=== PATIENT | female | born 1995 | race Two or more races ===

== ENCOUNTER → 2019-02-01 14:39 | Outpatient (CLI) | payer MEDICAID ==
[~2019-02-01 14:39] MED LIST: HYDROCODON-ACE1 EA10 PO; IBUPROFEN600 MG PO; PRENAVITE1 TAB PO
[2019-02-02 00:29] VITALS: BMI 29.9
== END | disposition home or self-care (01) ==
LOC: D.LDO 14:39
PROVIDERS: ATTEND Obstetrics & Gynecology
DX: O62.9 Abnormality of forces of labor, unspecified (principal); Z3A.39 39 weeks gestation of pregnancy

== ENCOUNTER 2019-02-01 20:24 | Inpatient (IN) | payer MEDICAID ==
[~2019-02-01] VITALS: Ht 152.4 cm; Wt 69.4 kg
[2019-02-01 22:10] LABS: HEMATOCRIT 34.1 % (36.0-48.0); HEMOGLOBIN 11.3 g/dL (12-16); MCHC 33.1 g/dL (31.0-37.0); MCV 84.6 fL (80.0-100.0); MEAN PLATELET VOLUME 9.9 fL (7.4-10.4); RBC 4.03 10x6/uL (4.00-5.40); RDW 14.7 % (11.5-14.5); WBC 10.1 10x3/uL (4.8-10.8)
[2019-02-01 22:28] LABS: UDS - AMPHET NEGATIVE QUAL (NEGATIVE); UDS - BARB NEGATIVE QUAL (NEGATIVE); UDS - BENZO NEGATIVE QUAL (NEGATIVE); UDS - COCAINE NEGATIVE QUAL (NEGATIVE); UDS - OPIATE NEGATIVE QUAL (NEGATIVE); UDS - PCP NEGATIVE QUAL (NEGATIVE); UDS - THC POSITIVE QUAL (NEGATIVE)
[2019-02-02] VITALS (9 sets, daily range): BP systolic 108–145; BP diastolic 66–83; Ht 152.4 cm; Wt 69.4 kg
--- NOTE | 2019-02-02 12:40 | NUR ---
RECEIVED FROM RECOVERY ROOM TO 1274. ALERT AND ORIENTED. IV NS WITH 20 U PITOCIN INFUSING RIGHT WRIST. SCALES DRAINING YELLOW, BLOOD TINGED URINE. LTCS ABD DRESSING INTACT WITH SMALL AREA OF BRIGHT RED BLOOD STAIN NOTED INNER LAYER OF DRESSING. MARKED WITH PEN. SIZE APPROX QUARTER SIZE. ICE PACK ON INCISIONAL DRESSING WHICH PT SAYS HELPS WITH PAIN. CURRENTLY 8/[address] AND PLACED ON PUMP, WORKING BILATERALLY. ABLE TO MOVE FEET BUT UNABLE TO MOVE LIFT OR BEND LE. 2/U FIRM, MIDLINE, RUBRA SMALL-CLEAN JAZLYN-PADS X 2 PLACED. SIDE RAILS UP X 2, CALL LIGHT IN REACH.
--- NOTE | 2019-02-02 13:00 | NUR ---
2/U FIRM MIDLINE, RUBRA SMALL, REMOVED JAZLYN-PAD WITH ONE CLEAN PAD REMAINING. VISITORS IN ROOM. SIDE RAILS UP X 2, CALL LIGHT IN REACH.
--- NOTE | 2019-02-02 13:03 | NUR ---
TORADOL 30 MG GIVEN IVP FOR RELIEF OF 8/10 INCISIONAL BURNING AFTER DISCUSSING PURPOSE OF MEDICATION WITH PATIENT. WILL SET-UP COMMUNITY ENGAGEMENT COORDINATOR FOR PATIENT USE PER MD ORDERS.
--- NOTE | 2019-02-02 13:15 | NUR ---
Ajay TOLLIVER, RN IN ROOM ASSISTING PT WITH . DILAUDID AUTOMATIC RIVETING MACHINE OPERATOR CONNECTED AND PT INSTRUCTED ON USE AND THAT SHE IS THE ONLY PERSON TO PUSH THE CONTROLLER. VERBALIZED UNDERSTANDING. INCISIONAL PAIN NOW 6/10 AFTER TORADOL. SCD'S IN PLACE AND WORKING BILATERALLY, ICE PACK ON INCISION. VISITORS IN ROOM. SIDE RAILS UP X 2, CALL LIGHT IN REACH. AUTOMATIC RIVETING MACHINE OPERATOR SETTINGS CONFIRMED BY Ajay TOLLIVER RN.
--- NOTE | 2019-02-02 13:15 | NUR ---
2/U FIRM MIDLINE, RUBRA SMALL, CLEAN JAZLYN-PAD X 1 PLACED. NO CHANGE IN BLEEDING NOTED ON ABDOMINAL DRESSING. SITTING UP IN BED. NO REQUESTS.
--- NOTE | 2019-02-02 13:30 | NUR ---
1/U FIRM MIDLINE, RUBRA SMALL. ICE PACK REMAINS ON INCISION. AND VISITORS IN ROOOM. SIDE RAILS UP X 2, CALL LIGHT IN REACH.
--- NOTE | 2019-02-02 13:51 | NUR ---
SITTING IN LOW FOWLERS POSITION, INSTRUCTED ON USE ON INCENTIVE SPIROMETER, PERFORMED THREE TIMES WITH WEAK COUGH. TAUGHT HOW TO SUPPORT ABDOMEN. IN CRIB, VISITORS X 3 IN ROOM. SAYS PAIN IS 5/10 WHICH SHE SAY IS TOLERABLE, ENCOURAGED USE OF ROLL UP MACHINE OPERATOR IF NEEDED. ABLE TO MOVE FEET BUT UNABLE TO LIFT LE OR BEND AT KNEES. APPLE JUICE, ICE WATER, SPRIT AND JELLO AT BEDSIDE. ENCOURAGE SMALL AMOUNTS AT FIRST. SIDE RAILS UP X 2, CALL LIGHT IN REACH.
--- NOTE | 2019-02-02 14:18 | NUR ---
PT CALLED SCHOOL PSYCHOLOGICAL EXAMINER LIGHT, TO ROOM TO ASSIST PT, STATES "I LEAKED". MOD BLEEDING NOTED ON JAZLYN-PAD X 1, TWO PADS IN PLACE, 1/U FIRM MIDLINE, NO CLOTS OR ACTIVE BLEEDING WITH GENTLE EXAM. ASSISTED TO MOVE UP IN BED, POSITIONED TO RIGHT SIDE. PREPARING TO BREASTFEED INFANT. Ajay TOLLIVER RN NURSERY IN ROOM TO ASSIST. BEGINNING TO BE ABLE TO BEND AT KNEES BILATERALLY. SIDE RAILS UP X 2, CALL LIGHT IN REACH. VISITORS IN ROOM.
--- NOTE | 2019-02-02 15:05 | NUR ---
1/U FIRM MIDLINE, ONE PAD SATURATED- PAD WEIGHED- EQUIVALENT TO 60 CC BLOOD LOSS. WILL MONITOR BLEEDING. SCALES DRAINING CLEAR YELLOW URINE. HAS NOT USED SUPERVISOR COLD ROLLING. SAYS SHE IS STILL 5/10 "I'M DOING FINE. DO I NEED TO USE IT?" EXPLAINED THAT IS UP TO HER BASED ON HER PAIN AND NEED FOR PAIN MANAGEMENT. VERBALIZED UNDERSTANDING. VISITORS IN ROOM, ATTEMPTED TO BREASTFEED EARLIER. Ajay TOLLIVER RN NURSERY CURRENTLY IN ROOM. SIDE RAILS REMAIN UP, CALL LIGHT AND SUPERVISOR COLD ROLLING CONTROLLER WITHIN REACH.
--- NOTE | 2019-02-02 16:09 | NUR ---
LAYING TILTED TO LEFT SIDE. 1/U FIRM MIDLINE. RUBRA SCANT ON PAD. INCENTIVE SPIROMETER USED X 3 WITH WEAK COUGH. FRESH ICE PACK TO INCISION. NO ADDITIONAL REQUESTS. VISITORS IN ROOM. INFANT IN ROOM, Ajay TOLLIVER, MARISA NURSERY CURRENTLY IN ROOM. SCALES DRAINING CLEAR YELLOW URINE, SCD'S FUNCTIONAL BILATERALLY. MOVING LE. REMINDED NOT TO PULL LEGS UP AND BEND KNEES FOR PROLONG PERIODS. SIDE RAILS UP X 2, CALL LIGHT AND SUPERVISOR CORE SHOP CONTROLLER IN REACH.
[2019-02-02 16:19] LABS: BASOPHILS 0.1 % (0-2); EOSINOPHILS 0 % (0-7); HEMATOCRIT 29.3 % (36.0-48.0); HEMOGLOBIN 9.4 g/dL (12-16); IMMATURE GRANULOCYTES 0.3 % (0-5); LYMPHOCYTES 10.2 % (15-50); MCH 27.5 pg (26.0-34.0); MCHC 32.1 g/dL (31.0-37.0); MCV 85.7 fL (80.0-100.0); MEAN PLATELET VOLUME 9.7 fL (7.4-10.4); MONOCYTES 7.3 % (2-11); NEUTROPHILS 82.1 % (40-80); PLATELET COUNT 220 10x3/uL (130-400); RBC 3.42 10x6/uL (4.00-5.40); RDW 14.9 % (11.5-14.5)
[2019-02-02 16:22] LABS: WBC 12.8 10x3/uL (4.8-10.8)
--- NOTE | 2019-02-02 16:25 | NUR ---
H&H RESULTS CALLED TO DR HERNANDES. ALSO GAVE RESULTS OF ADMIT H&H. NO NEW ORDERS.
--- NOTE | 2019-02-02 17:25 | NUR ---
VS OBTAINED, INCENTIVE SPIROMETER USED X 3. REPOSITIONED FROM LEFT SIDE TO RIGHT SIDE WITH PILLOWS. ICE PACK IN PLACE OVER INCISION, 1/U FIRM MIDLINE, RUBRA SCANT ON PAD. SCD'S IN PLACE AND FUNCTIONAL. USED FLATWORK FEEDER SAYS PAIN WAS 7/10 AND NOW 5/10. DESIRES TO TAKE A NAP. NURSERY RN JUST BROUGHT INFANT TO ROOM IN CRIB. VISITORS X 2 AT IN ROOM. SIDERAILS UP X 2, CALL LIGHT IN REACH, FLATWORK FEEDER CONTROLLER IN REACH.
--- NOTE | 2019-02-02 18:48 | NUR ---
AWAKE, SAYS SHE JUST WOKE UP FROM A 30 MINS NAP. SAYS HER INCISIONAL BURNING WAS A 7 WHEN SHE WOKE AND NOW AN 8. PUSHED HER SECURITY SYSTEMS SALES REPRESENTATIVE BUTTON. TORADOL 30 MG GIVEN IVP FOR ADDITIONAL RELIEF. ENCOURAGED TO REST AND CONTINUE TO PUSH SECURITY SYSTEMS SALES REPRESENTATIVE CONTROLLER NEEDED. UNABLE TO LIFT LEGS OFF BED. DISCUSSED CHANGES IN PAIN PERCEPTIONS EPIDURAL CONTINUES TO WEAR OFF. VERBALIZED UNDERSTANDING. INFANT IN CRIB COLOR PINK, RESPIRATIONS EVEN. SIDE RAILS UP X 2, CALL LIGHT IN REACH ALONG WITH SECURITY SYSTEMS SALES REPRESENTATIVE CONTROLLER. TO CALL IF ANYTHING IS NEEDED.
--- NOTE | 2019-02-02 19:08 | NUR ---
PT AAOX3, CONVERSANT AND RESPONSES APPROPRIATE, SKIN WARM AND DRY, COLOR WNL, PULSE OX 96% ON ROOM AIR, VSS, AFEBRILE, DENIES LI, BLURRY VISION, DIZZINESS, HEART RRR WITHOUT AUDBILE MURMUR PER AUSCULATION, LUNGS CTAB, ABD SOFT TENDER TO LIGHT PALPATION, FUNDUS FIRM AT U/2 AND MIDLINE, LOCHIA RUBRA MODERATE AMOUNT, PERICARE/SCALES CARE PROVIDED, SCALES CATHETER WITH CLEAR YELLOW URINE IN TUBING, TUBING REPOSITIONED WITH 200ML FLOW TO COLLECTION CHAMBER, RATES PAIN A 6/10 ON NUMERIC PAIN SCALE, USING DRYER OPERATOR BUTTON FOR PAIN RELIEF INTERMITTENTLY, RECEIVED TORADOL SIVP PRIOR THIS RN TAKING PT, STATES BEGINNING TO "HELP SOME NOW." CAMPBELL FREELY, SCDS IN PLACE B LE, NEGATIVE CANDE'S SIGN B LE, PEDAL PULSES STRONG AND EQUAL 2+ B, CAP REFILL LESS THAN 3 SEC ON EXTREMITIES. REVIEWED PLAN OF CARE THIS PM, CALL LIGHT/DRYER OPERATOR BUTTON WITHIN EASY REACH, TOLERATING CLEAR LIQUIDS WITHOUT NAUSEA OR VOMITING. CONTINUE TO MONITOR.
--- NOTE | 2019-02-02 20:30 | NUR ---
ROUNDS COMPLETED, RESP EVEN AND UNLABORED, SMILING ON ENTRY TO ROOM, MULTIPLE VISITORS AND FAMILY PRESENT, BELARUSIAN SPEAKING, PT BILINGUAL. DENIES NEEDS OR CONCERNS AT THIS TIME, CONTINUE TO MONITOR.
--- NOTE | 2019-02-02 21:42 | NUR ---
ROUNDS COMPLETED, FUNDUS FIRM AT U/2, MIDLINE, LOCHIA RUBRA LIGHT TO MODERATE AMOUNT, NO CLOTS VISUALIZED, LOW TRANSVERSE INCISION INTACT WITH OCCLUSIVE DRESSING WITH OLD DRAINAGE MARKINGS SHOWING NO NEW DRAINAGE SINCE SHIFT ASSESSMENT THIS PM. MULTIPLE FAMILY AND FRIENDS TO ROOM, NAD NOTED. RESP EVEN AND UNLABORED, ICE PACK OVERLAY REPLACED AND TO INCISIONAL SITE, CUP OF ICE PROVIDED UPON REQUEST. CONTINUE TO MONITOR.
--- NOTE | 2019-02-02 22:13 | NUR ---
ROUNDS COMPLETED, VSS, AFEBRILE, RESP EVEN AND UNLABORED, PERICARE/SCALES CARE COMPLETED, FUNDUS FIRM AT U/2 AND MIDLINE, LOCHIA RUBRA LIGHT AMOUNT, NO CLOTS NOTED, PT SELF POSITIONING IN BED, REPORTS PAIN A 4 OF 10 ON NUMERIC PAIN SCALE 0-10, STATES USING EDUCATIONAL SIGN LANGUAGE INTERPRETER BUTTON FOR EFFECTIVE MANAGEMENT OF PAIN.
--- NOTE | 2019-02-03 00:15 | NUR ---
ROUNDS COMPLETED, PT RESTING IN BED, HOB ELEVATED AT 30 DEGREES, RESP EVEN AND UNLABORED, RATES PAIN 4 OF 10 ON NUMERIC PAIN SCALE AT THIS TIME, CALL LIGHT/ACCOUNTS RECEIVABLE ACCOUNTANT BUTTON WITHIN EASY REACH, SIDE RAILS UP X2, BED IN LOW POSITION, SIGNIFICANT OTHER AT BS WITH PT. NO NEEDS VOICED AT THIS TIME.
--- NOTE | 2019-02-03 01:08 | NUR ---
C/O INCISIONAL PAIN RATED 7 OF 10 0N NUMERIC PAIN SCALE, INCREASED ON MOVEMENT IN BED, DESCRIBED ACUTE INCISIONAL PAIN AND SURROUNDING ACHINESS. KETORALAC 30MG SIVP GIVEN VIA PIV ORDERED PER MD. EMPTIED 1200ML CLEAR YELLOW URINE FROM SCALES CATHETER AND RESET TO GRAVITY DRAINAGE, SCALES/PERICARE PROVIDED, PERIPADS PLACED, FRESH ICE PACK OVERLAY TO INCISIONAL SITE PER PT REQUEST, CUP OF ICE PROVIDED WELL PER REQUEST. PIV SITE BENIGN TO INSPECTION, NO NEW BLEEDING NOTED TO INCISIONAL DRESSING TO LOW ABDOMEN. FUNDUS FIRM AT U/2 AND MIDLINE, LOCHIA RUBRA MODERATE AMOUNT NO CLOTS. CALL LIGHT AND RADIO INTERFERENCE SUPERVISOR BUTTON WITHIN EASY REACH. CONTINUE TO MONITOR.
--- NOTE | 2019-02-03 01:40 | NUR ---
PAIN REASSESSMENT COMPLETED, PT NOW RATES PAIN 4 OF 10 ON NUMERIC PAIN SCALE, INFANT IN ARMS, NAD NOTED. CONTINUE TO MONITOR.
--- NOTE | 2019-02-03 02:50 | NUR ---
ROUNDS COMPLETED, PT SITTING UPRIGHT IN BED, HOB AT 45 DEGREES, INFANT IN ARMS, REPORTS PASSING CLOT. PERICARE PROVIDED, CLOT ROUGHLY SIZE OF DECK OF CARDS PASSED, FUNDUS IS FIRM AT THIS TIME, U/2 AND MIDLINE, CAMPBELL FREELY, SCDS ON AND FUNCTIONING, CAP REFILL LESS THAN 3 SECS TO B LE, NEGATIVE CANDE'S SIGN. CONTINUE TO MONITOR.
[2019-02-03 03:43] VITALS: BP 113/59
--- NOTE | 2019-02-03 04:47 | NUR ---
1000ML BAG NS WITH 20 UNITS PITOCIN ADDED HUNG AND INFUSING AT 125ML/HR TO RIGHT WRIST. PT DROWSY, DENIES NEEDS OR CONCERNS AT THIS TIME, STATES SLEEPY AND WOULD LIKE FOR THIS NURSE TO TAKE TO NURSERY TO SLEEP; SAME DONE. CALL LIGHT HIGH SCALER BUTTON WITHIN EASY REACH, CONTINUE TO MONITOR.
[2019-02-03] MEDS ORDERED: PRENAVITE1 TAB PO (05:36)
--- NOTE | 2019-02-03 06:30 | NUR ---
MD TO SEE PT. ROUNDS COMPLETED, PT DENIES NEEDS/CONCERNS, DROWSY. CALL LIGHT IN EASY REACH, RESP EVEN AND UNLABORED. CONTINUE TO MONITOR.
--- NOTE | 2019-02-03 07:00 | NUR ---
DR HERNANDES HERE TO SEE PT.
--- NOTE | 2019-02-03 07:03 | NUR ---
REPORT GIVEN TO ONCOMING SHIFT STAFF.
[2019-02-03 07:52] VITALS: BP 128/69
[2019-02-03 07:55] LABS: BASOPHILS 0.2 % (0-2); EOSINOPHILS 0.4 % (0-7); HEMATOCRIT 29.8 % (36.0-48.0); HEMOGLOBIN 9.5 g/dL (12-16); IMMATURE GRANULOCYTES 0.3 % (0-5); LYMPHOCYTES 20.3 % (15-50); MCH 27.3 pg (26.0-34.0); MCHC 31.9 g/dL (31.0-37.0); MCV 85.6 fL (80.0-100.0); MEAN PLATELET VOLUME 9.9 fL (7.4-10.4); NEUTROPHILS 70.8 % (40-80); PLATELET COUNT 191 10x3/uL (130-400); RBC 3.48 10x6/uL (4.00-5.40); RDW 15.2 % (11.5-14.5); WBC 10.1 10x3/uL (4.8-10.8)
--- NOTE | 2019-02-03 08:05 | NUR ---
ASSESSMENT DONE. SITTING UP IN BED -REG DIET SERVED. NO REQUESTS.
--- NOTE | 2019-02-03 09:10 | NUR ---
AM HEMOGRAM REPORTED TO DR HERNANDES- NEW ORDERS RECEIVED.
--- NOTE | 2019-02-03 09:50 | NUR ---
SCALES CATH REMOVD POST BULB DEFLATED WITHOUT INCIDENT- 650CC URINE IN BAG. JAZLYN CARE DONE. SMALL TO MOD LOCHIA NOTED. NO CLOTS. IV CHANGED TO SALINE LOCK- FLUSHED WITH 10CCNS.
--- NOTE | 2019-02-03 10:50 | NUR ---
entered room- pt denies wanting pain medication. states she needs to go to bathroom but family in bathroom at this time. pt states will ring call light when ready.
--- NOTE | 2019-02-03 10:56 | NUR ---
rings call light- pt ambulates to bathroom. states that she would like pain medication now. voids 650cc into container. returns to bed. states that she has passed some gas last night but not today.
--- NOTE | 2019-02-03 11:09 | NUR ---
PAIN MEDS GIVEN.
--- NOTE | 2019-02-03 12:28 | NUR ---
SITTING UP IN BED TALKING WITH VISITORS. LUNCH SERVED. PT STATES WILL CALL WHEN READY TO SHOWER.
--- NOTE | 2019-02-03 12:55 | NUR ---
UP TO BATHROOM- VOIDED 700CC. INTO SHOWER AND TOLERATED WELL. LINENS CHANGED. RETURNED TO BED. STATES HAS PASSED A LITTLE GAS.
[2019-02-03 13:30] VITALS: BP 126/71
--- NOTE | 2019-02-03 15:20 | NUR ---
Luis EUCEDA RN IN ROOM- PT DENIES NEEDS.
--- NOTE | 2019-02-03 16:00 | NUR ---
AMBULATING IN HALLWAYS-GUERITA WELL.
[2019-02-03 16:24] VITALS: BP 155/68
--- NOTE | 2019-02-03 16:31 | NUR ---
REQUESTING PAIN MEDICATION- RATES PAIN A 6 ON SCALE OF 0-10. INCISIONAL PAIN.
--- NOTE | 2019-02-03 17:55 | NUR ---
AMBULATING IN HALLWAY. STATES THAT WOULD LIKE IBUPROFEN NOW. MED GIVEN.
[2019-02-03 19:15] VITALS: BP 126/61
--- NOTE | 2019-02-03 19:15 | NUR ---
SHIFT ASSESSMENT COMPLETED, PT AMBULATORY IN ROOM ON ARRIVAL, SMILING, CONVERSANT AAOX3, VSS, TEMP 99.5 ORALLY, DENIES LI/BLURRY VISION, DIZZINESS, LUNGS CTAB, HEART RRR WITHOUT MURMUR, ABD SOFT AND NONTENDER, REPORTS FLATUS, BOWEL SOUNDS PRESENT AND ACTIVE, LOW TRANSVERSE INCISION CDI WITH JOSIANE, NO REDNESS, WARMTH, DRAINAGE, OR EDEMA NOTED, PT USING ICE PACK OVERLAY PAIN MANAGEMENT MEASURE-REFILLED AND REPLACED PER PT REQUEST, FUNDUS FIRM AT U/3 AND MIDLINE, LOCHIA RUBRA LIGHT AMOUNT, SELF PERFORMS PERICARE, VOIDING WITHOUT DIFFICULTY, NO BM YET, CAMPBELL FREELY, NEGATIVE CANDE'S SIGN B LE, PEDAL PULSES STRONG/=+2 B. CALL LIGHT IN EASY REACH, RATES PAIN 3 OF 10 AT THIS TIME. CONTINUE TO MONITOR.
--- NOTE | 2019-02-03 20:54 | NUR ---
C/O PAIN RATED 5 OF 10, NORCO 10/325MG GIVEN WITH SIPS OF WATER. CUP OF ICE PROVIDED UPON REQUEST WELL. PT AMBULATORY IN ROOM, REPORTS VOIDING X1 SINCE SHIFT ASSESSMENT TONIGHT. FAMILY AND FRIENDS VISITING IN PT ROOM. CALL LIGHT IN EASY REACH, CONTINUE TO MONITOR.
--- NOTE | 2019-02-03 21:41 | NUR ---
PAIN REASSESSMENT COMPLETED. PT REPORTS PAIN 3 OF 10 ON NUMERIC PAIN SCALE AT THIS TIME, AMBULATORY IN ROOM, PT SMILING. NO OTHER NEEDS VOICED ON THIS RN INQUIRY. CALL LIGHT IN EASY REACH, FAMILY AND FRIENDS REMAIN AT BS.
--- NOTE | 2019-02-03 22:05 | NUR ---
PT REQUESTING SALINE LOCK REMOVAL, STATES "IT'S JUST BOTHERING ME." SITE BENIGN TO INSPECTION, SALINE LOCK DC'D, CATH TIP INTACT, BANDAID APPLIED TO SITE. CONTINUE TO MONITOR.
[2019-02-03 23:15] VITALS: BP 116/63
--- NOTE | 2019-02-03 23:16 | NUR ---
ROUNDS COMPLETED, PT INQUIRING ABOUT WHAT TIME SHE WILL BE ABLE TO GO HOME, REVIEWED NEED FOR PT AND BABY MD TO WRITE ORDERS FOR DC AND DEPENDS ON PT AND BABY WELL BEING/STATUS AT THAT TIME. PT STATES UNDERSTANDING. VSS, AFEBRILE, AMBULATORY IN ROOM, SMILING, VISITING WITH FRIENDS. CALL LIGHT IN EASY REACH.
--- NOTE | 2019-02-04 01:37 | NUR ---
ROUNDS COMPLETED, PT OOB TO BR, VOIDING, SELF PERFORMING PERICARE, PARTIAL LINEN CHANGE COMPLETED, RESP EVEN AND UNLABORED, DENIES OTHER NEEDS AT THIS TIME, CONTINUE TO MONITOR.
--- NOTE | 2019-02-04 01:52 | NUR ---
PT REQUESTING PAIN MEDS FOR C/O PAIN RATED 7 OF 10 ON NUMERIC PAIN SCALE, SAME PROVIDED WITH SIPS WATER, POSITIONED PT TO COMFORT IN BED, SIDE RAILS UP X2, BED IN LOW POSITION, LIGHTS DIMMED, CALL LIGHT IN EASY REACH OF PT, CONTINUE TO MONITOR.
[2019-02-04 03:16] VITALS: BP 113/67
--- NOTE | 2019-02-04 03:16 | NUR ---
ROUNDS COMPLETED, VSS, AFEBRILE, SITTING ON SIDE OF BED TENDING TO IN ROLLING CRIB. NAD NOTED, RESP EVEN AND UNLABORED, CALL LIGHT IN EASY REACH OF PT.
--- NOTE | 2019-02-04 04:01 | NUR ---
PT USING CALL LIGHT REQUESTING BE TAKEN TO NURSERY SO SHE CAN SLEEP. TAKEN TO NURSERY PER REQUEST.
--- NOTE | 2019-02-04 05:31 | NUR ---
PT RESTING WITH EYES CLOSED, RESP EVEN AND UNLABORED, NAD NOTED ON ROUNDS, CALL LIGHT WITHIN EASY REACH, CONTINUE TO MONITOR.
--- NOTE | 2019-02-04 06:33 | NUR ---
INFANT TAKEN TO PT ROOM, BAND VERIFICATION COMPLETED. PT STATES "THANK YOU FOR LETTING ME SLEEP A COUPLE OF HOURS." INFORMED PT OF INFANT BEING FED 30ML AT 630AM, CALL LIGHT WITHIN EASY REACH, DENIES NEEDS AT THIS TIME. CONTINUE TO MONITOR.
[2019-02-04 07:31] LABS: RAPID PLASMA REAGIN Non Reactive (Non Reactive)
--- NOTE | 2019-02-04 07:40 | NUR ---
PT CALLS OUT LOOPER OPERATOR LIGHT FROM BATHROOM, THIS RN TO ROOM. PT SITTING UP ON TOILET, AAOx3, STATES "I JUST NEED MORE PADS AND PANTIES." PT PROVIDED WITH REQEUSTED SUPPLIES. PT STATES HER PAIN IS NOW 7/10 AFTER GETTING UP OOB AND AMBULATING TO BR. REQUESTS PAIN MEDS. WILL ADMIN ORDERED.
--- NOTE | 2019-02-04 07:48 | NUR ---
DR HERNANDES TO ROOM FOR ROUNDING, DISCUSSES D/C INSTRUCTIONS WITH PT. PT INSTRUCTED TO PRESENT TO [facility] SUNDAY BETWEEN 0800 AND 1000 FOR STAPLE REMOVAL. VERBAL DISCHARGE ORDER RECEIVED. WILL PROCEED ORDERED.
[2019-02-04 07:54] VITALS: BP 110/59
--- NOTE | 2019-02-04 07:54 | NUR ---
PT ADMIN PRN PAIN MEDS ORDERED, SEE EMAR FOR DOC. VSS, SHIFT ASSESSMENT COMPLETE, SEE FLOWSHEET AND EMAR FOR DOC. PT DENIES CONCERNS WITH HEAVY LOCHIA, S/S TO REPORT DISCUSSED. FF, ML, U/2. SMALL RUBRA LOCHIA, NO CLOTS. LOW TRANSVERSE ABD INCISION IS C/D WITH JOSIANE INTACT. DISCHARGE PLANNING DISCUSSED WTIH PT. PT STATES SHE IS READY TO GO HOME TODAY. PT DENIES NEEDS AT THIS TIME, SITTING UP IN BED, HOLDING INFANT. SRUx2, CL IN REACH. FAMILY MEMBER ON BEDSIDE COUCH. WILL CONT TO MONITOR.
--- NOTE | 2019-02-04 09:11 | NUR ---
THIS RN TO ROOM FOR PT CHECK AND PAIN REASSESSMENT. PT SITTING UP IN BED, VISTING WITH FAMILY. PT REPORTS IMPROVEMENT IN PAIN, RATES PAIN 3/10 AT THIS TIME. PT STATES SHE FEELS DIZZY FROM PAIN MEDS. PT INSTRUCTED TO CALL FOR ASSIST IF NEEDED TO GET OUT OF BED, UNDERSTANDING VERBALIZED. PT DENIES NEEDS AT THIS TIME. SRUx2, CL IN REACH. WILL CONT TO MONITOR.
--- NOTE | 2019-02-04 09:20 | NUR ---
Yocasta Stuart [birth year] S: Patient states she isn't any more, just formula. Baby latched at first but nothing was coming out so she tired 3 more times, same thing. She plans on just formula feeding. Denies help for CLC with . O: Patient sitting up in bed, FOB on sofa in room, and family member changing on bed. Congratulated on delivery and asked how can I help with ? Validated client concern. Asked if she would like help with , knowing how your body makes milk now and in the future can with understanding . If you decide you would like help with , please let nursery staff know, we will be happy to assist. A: Patient decided to formula feed because she doesn't think is getting any breastmilk. P: If patient decides she would like help with , please let nursery staff know. Chace Ogden, CLC
--- NOTE | 2019-02-04 09:51 | NUR ---
THIS RN TO ROOM TO DISCUSS D/C PLANNING, PT STATES SHE WOULD LIKE THE FLU AND TDAP VACCINES TODAY PRIOR TO DISCHARGE.
[2019-02-04] MEDS ORDERED: HYDROCODON-ACE1 EA10 PO (09:54)
[2019-02-04] MEDS ORDERED: IBUPROFEN600 MG PO (09:55)
--- NOTE | 2019-02-04 10:18 | NUR ---
VACCINES ADMIN ORDERED, SEE EMAR FOR DOC.
--- NOTE | 2019-02-04 10:32 | NUR ---
DISCHARGE TEACHING DONE AND WRITTEN PRESCRIPTION FROM DR HERNANDES PROVIDED TO PT PROVIDED. PT VERBALIZES UNDERSTANDING AND DENIES QUESTIONS, SIGNS CHART COPIES. DISCHARGE PROCESS EXPLAINED, PT INSTRUCTED TO CALL FOR WHEELCHAIR AFTER IS DISCHARGED AND BUCKLED IN CARSEAT. UNDERSTANDING VERBALIZED.
--- NOTE | 2019-02-04 11:35 | NUR ---
PT TAKEN OFF UNIT VIA W/C TO PRIVATE VEHICLE FOR D/C TO HOME, SIG OTHER TO DRIVE PT HOME. BELONGINGS AND INSTRUCTIONS IN HAND, INFANT BUCKLED IN CARSEAT.
[2019-02-08 08:16] LABS: UDSC - AMPHET Negative ng/mL (Cutoff=1000); UDSC - BARB Negative ng/mL (Cutoff=300); UDSC - BENZO Negative ng/mL (Cutoff=300); UDSC - COC Negative ng/mL (Cutoff=300); UDSC - METH Negative ng/mL (Cutoff=300); UDSC - OPIATES Negative ng/mL (Cutoff=300); UDSC - PCP Negative ng/mL (Cutoff=25); UDSC - PROPOXY Negative ng/mL (Cutoff=300); UDSC - THC Positive (Cutoff=50)
== END 2019-02-04 11:35 | disposition home or self-care (01) | DRG 788 ==
LOC: D.LDO 20:24 → D.LD 21:26
PROVIDERS: ADMIT Obstetrics & Gynecology; ATTEND Obstetrics & Gynecology
PROC: 10907ZC Drainage of Amniotic Fluid, Therapeutic from Products of Conception, Via Natural or Artificial Opening (ICD-10-PCS; 2019-02-02)
PROC: 10D00Z1 Extraction of Products of Conception, Low, Open Approach (ICD-10-PCS; principal; 2019-02-02 11:15)
DX: O99.324 Drug use complicating childbirth (principal); F12.90 Cannabis use, unspecified, uncomplicated; O76 Abnormality in fetal heart rate and rhythm complicating labor and delivery; Z3A.39 39 weeks gestation of pregnancy; Z37.0 Single live birth; O77.0 Labor and delivery complicated by meconium in amniotic fluid